=== PATIENT | male | born 1980 | race Caucasian/White ===

== ENCOUNTER → 2020-10-10 13:19 | Outpatient (CLI) | payer BC, SELFPAY ==
[2020-10-10 14:33] LABS: Follicle Stimulating Hormone 2.5 mIU/mL; Thyroid Stim Hormone (TSH) 0.76 uIU/mL (0.358-3.74)
== END ==
LOC: LAB 13:20
PROVIDERS: PCP Family Medicine; Referring Provider Family Medicine; Visit Provider Family Medicine
DX: R68.82 Decreased libido (principal)
CPT/HCPCS: 36415; 83001; 83002; 84403; 84443

== ENCOUNTER → 2024-09-25 | Outpatient (CLI) | payer OTHER, SELFPAY | END | disposition home or self-care (01) | LOC: LAB 11:57 → LABSPEC 11:58 | PROVIDERS: PCP Family Medicine; Referring Provider Nurse Practitioner Family; Visit Provider Nurse Practitioner Family | DX: Z20.9 Contact with and (suspected) exposure to unspecified communicable disease (principal) | CPT/HCPCS: 87491; 87591 ==